=== PATIENT | female | born 1940 | race Caucasian/White ===

== ENCOUNTER 2021-05-30 10:53 | Outpatient (RCR) | payer MEDICARE, BC | END 2021-06-03 | disposition home or self-care (01) | LOC: CARDREHAB 10:53 | DX: Z48.812 Encounter for surgical aftercare following surgery on the circulatory system (principal); Z95.2 Presence of prosthetic heart valve ==

== ENCOUNTER 2021-06-08 10:00 | Outpatient (RCR) | payer MEDICARE, BC | END 2021-07-04 | disposition home or self-care (01) | LOC: CARDREHAB | DX: Z48.812 Encounter for surgical aftercare following surgery on the circulatory system (principal); Z95.4 Presence of other heart-valve replacement ==

== ENCOUNTER 2021-07-05 08:54 | Outpatient (RCR) | payer MEDICARE, BC | END 2021-08-01 | disposition home or self-care (01) | LOC: CARDREHAB | DX: Z48.812 Encounter for surgical aftercare following surgery on the circulatory system (principal); Z95.2 Presence of prosthetic heart valve ==

== ENCOUNTER 2021-08-02 09:30 | Outpatient (RCR) | payer MEDICARE, BC | END 2021-09-01 | disposition home or self-care (01) | LOC: CARDREHAB | DX: Z48.812 Encounter for surgical aftercare following surgery on the circulatory system (principal); Z95.2 Presence of prosthetic heart valve ==